=== PATIENT | female | born 1970 | race Caucasian/White ===

== ENCOUNTER 2021-01-04 21:18 | Emergency (ER) | payer SELFPAY ==
[2021-01-05] MEDS ORDERED: Fentanyl 100 MCG/2 ML VIAL ONE (01:04)
[2021-01-05] MEDS ORDERED: Glycopyrrolate 0.2 MG/ML 5 ML SYRINGE ONE (01:26)
[2021-01-05] MEDS ORDERED: PROPOFOL 200 MG/20 ML VIAL ONE (01:26)
[2021-01-05] MEDS ORDERED: Rocuronium Bromide 10 MG/ML (10ML VIAL) ONE (01:26)
[2021-01-05] MEDS ORDERED: Succinylcholine 200 MG/10 ml SYRINGE FS ONE (01:26)
[2021-01-05] MEDS ORDERED: Dexamethasone 20 MG/5 ML VIAL ONE (01:26)
[2021-01-05] MEDS ORDERED: Ondansetron PF 4 MG/2 ML Vial ONE (01:26)
[2021-01-05] MEDS ORDERED: HYDROcodone/Acetaminophen 5/325 mg Tablet ONE (02:37)
--- NOTE | 2021-01-05 03:34 | CON ---
DATE OF CONSULTATION: 01/04/2021 CONSULTING PHYSICIAN: Otis Morse MD. HISTORY OF PRESENT ILLNESS: Ms. Sierra is a 50-year-old white female who is eating chicken yesterday evening and felt some stick in her throat. She thought she might be able to get it up and kept playing with it, but it has continued to bother and she feels like it is getting worse. She continues to feel it at the level of her hyoid bone. Occasionally feels like it is going up into her nasopharynx. She has not been able to get it up, and it continues to bother and is making it difficult for her to swallow and painful. She did not have any difficulty breathing. She has no prior history of any swallowing problems. She is edentulous. No other complaints. Soft tissue neck x-ray done in the ER that referred her was negative for foreign body. PAST MEDICAL HISTORY: Significant for diabetes, hypertension, hypercholesterolemia, that are all controlled. PAST SURGICAL HISTORY: Significant for cholecystectomy. MEDICATIONS: Hydrochlorothiazide, lisinopril, and metformin. ALLERGIES: TO MEDICATIONS, MORPHINE, AND PENICILLIN. REVIEW OF SYSTEMS: No other complaints. PHYSICAL EXAMINATION: GENERAL: Well-developed, well-nourished white female in mild distress. HEENT: Head is normocephalic, atraumatic. Eyes, pupils are equal, round, and reactive to light. Extraocular movements are intact. Ears, tympanic membranes are intact, mobile, clear. Nose, mucosa is pink and healthy. No apparent drainage or infection noted. Oral cavity and oropharynx show 2+ tonsils that are cryptic. As a significant gag, no foreign body was able to be visualized. She is edentulous. Mucosa is otherwise normal. NECK: No significant lymphadenopathy or masses noted. LUNGS: Clear to auscultation. HEART: Rate and rhythm regular without murmur or gallop. NEURO: Grossly intact. IMPRESSION: Possible foreign body, pharynx. PLAN: To take her to the OR for direct laryngoscopy and hopefully removal of foreign body under general anesthesia. The patient understands the indications, benefits, risks, and complications and consents to the procedure. Job ID: [id number]
--- NOTE | 2021-01-05 03:49 | OP ---
DATE OF PROCEDURE: 01/05/2021 PREOPERATIVE DIAGNOSIS: Foreign body, pharynx. POSTOPERATIVE DIAGNOSIS: Foreign body, pharynx. PROCEDURE: Direct laryngoscopy and esophagoscopy. ANESTHESIA: General. PREOPERATIVE NOTE: Ms. Sierra is a 50-year-old female who has had a 24-hour history of feeling something stuck in her throat after eating a piece of chicken and feeling chicken bone stuck in her throat. It has persisted over the last 24 hours and seems to be becoming more bothersome to her. I was not able to find on exam or on x-rays and now presents for a direct laryngoscopy to evaluate and find the foreign body and remove it. DESCRIPTION OF PROCEDURE: After the patient had received adequate general anesthesia, the patient was placed in supine position, prepped and draped in the usual standard fashion. A shoulder roll was placed under the shoulder. Neck was distended. She was edentulous. A moist 4x4 was placed over the gum to protect the gum. An anterior commissure scope was then introduced into the mouth. Visualization of the base of tongue, vallecula, epiglottis, tonsil area, piriform sinuses and post cricoid area and the glottis did not show any evidence of any foreign bodies. There was some evidence of tonsil stones which were suctioned clear, but no foreign bodies were noted. Then, after looking around twice to see if there was any evidence of any foreign bodies and looking up into the nasopharynx, feeling comfortable that we had done a thorough exam of her throat, we did a manual palpation of her throat; palpated the base of tongue; were able to get into the vallecula, the epiglottis, and the tonsils; and did not feel any evidence of any foreign bodies or bones in the area. Opted just for a completeness to look down the esophagus to make sure there was not anything farther down. Passed a rigid esophagoscope all the way down through the esophageal introitus all the way down to the gastroesophageal junction. Then, on 360-degree visualization, on removal, did not see any evidence of any lacerations, abnormalities, or foreign bodies. After removing the scope, the patient was awakened, taken to recovery room in stable condition, having tolerated the procedure well. Estimated blood loss was minimal. Sponge and needle count was correct at the end of the case. No complications. Job ID: [id number]
== END 2021-01-05 01:19 | disposition admitted as inpatient to this hospital (09) ==
LOC: ERS 21:18
DX: T17.228A Food in pharynx causing other injury, initial encounter (principal); E11.9 Type 2 diabetes mellitus without complications; I10 Essential (primary) hypertension; E78.00 Pure hypercholesterolemia, unspecified; F17.210 Nicotine dependence, cigarettes, uncomplicated; Z79.899 Other long term (current) drug therapy; Z79.84 Long term (current) use of oral hypoglycemic drugs
CPT/HCPCS: 99284; J1100; J2405; J2704; J3010

== ENCOUNTER 2022-12-15 11:54 | Outpatient (CLI) | payer OTHER | END 2022-12-15 11:55 | disposition home or self-care (01) | LOC: SCSRAD 11:54 | PROVIDERS: ATTEND Nurse Practitioner Family | DX: U07.1 COVID-19 (principal); R06.02 Shortness of breath | CPT/HCPCS: 71046 ==